=== PATIENT | female | born 1965 | race Caucasian/White ===

== ENCOUNTER 2020-05-08 12:09 | Emergency (ER) | payer OTHER ==
[~2020-05-08] VITALS: Ht 162.6 cm; Wt 61.2 kg
--- NOTE | 2020-05-08 12:30 | NUR ---
amanda cho taken on patient and sent to lab
--- NOTE | 2020-05-08 12:45 | NUR ---
Patient discharged to home in stable condition. Refused Written after care instructions given but states understanding of verbal instructions. Stressed follow up or return to ER for worsening s/s.
[2020-05-08 12:53] VITALS: BP 125/67
== END 2020-05-08 12:45 | disposition home or self-care (01) ==
LOC: ER 12:09
DX: Z03.818 Encounter for observation for suspected exposure to other biological agents ruled out (principal)
CPT/HCPCS: 99283; U0003; A4663

== ENCOUNTER 2025-03-24 06:47 | Day surgery (SDC) | payer BC ==
[2025-03-24] MEDS ORDERED: SIMETHICONE 40 MG/0.6 ML, 30ML BOTTLE ONE (08:45)
[2025-03-24 09:59] VITALS: TEMP 97
== END 2025-03-24 10:17 | disposition home or self-care (01) ==
LOC: DS 06:47
PROVIDERS: ATTEND Internal Medicine Gastroenterology
DX: Z12.11 Encounter for screening for malignant neoplasm of colon (principal); K64.8 Other hemorrhoids; K64.4 Residual hemorrhoidal skin tags; K57.30 Diverticulosis of large intestine without perforation or abscess without bleeding; E03.9 Hypothyroidism, unspecified; L91.8 Other hypertrophic disorders of the skin; Z88.4 Allergy status to anesthetic agent; Z79.899 Other long term (current) drug therapy; Z98.890 Other specified postprocedural states
CPT/HCPCS: 45378; 71045; 93005; J3490; J7120; A4663